=== PATIENT | female | born 1990 | race Caucasian/White ===

== ENCOUNTER → 2019-04-19 13:35 | Outpatient (CLI) | payer BC, MEDICAID, SELFPAY ==
[2019-04-24 08:21] LABS: HPV HC, High Risk Negative (Negative)
== END ==
PROVIDERS: Visit Provider Obstetrics & Gynecology
DX: R87.613 High grade squamous intraepithelial lesion on cytologic smear of cervix (HGSIL) (principal)
CPT/HCPCS: 87624; 88175; G0145

== ENCOUNTER → 2020-05-04 17:55 | Outpatient (CLI) | payer BC, MEDICAID, SELFPAY | PROVIDERS: Referring Provider Obstetrics & Gynecology; Visit Provider Obstetrics & Gynecology | DX: Z12.4 Encounter for screening for malignant neoplasm of cervix (principal); Z11.3 Encounter for screening for infections with a predominantly sexual mode of transmission ==

== ENCOUNTER → 2021-02-21 09:50 | Outpatient (CLI) | payer MEDICAID, SELFPAY ==
[2015-06-01 08:23] VITALS: BMI 30.2
[2021-02-21 13:26] LABS: Hematocrit 38.7 % (37-47); Hemoglobin 12.8 g/dL (12.0-15.0); Mean Corp Hgb Conc 33.1 g/dL (32-36); Mean Corpuscular Hgb 32.1 pg (27.0-32.0); Mean Platelet Vol. 9.8 fl (6.2-12.0); Platelet Count 392 K/mm3 (150-450); RBC Distribution Width CV 13.5 % (11.6-14.6); RBC Distribution Width SD 47.7 fl (35.1-43.9); Red Blood Count 3.99 M/mm3 (4.2-5.4); White Blood Count 8.6 K/mm3 (4.4-11.0)
[2021-02-21 14:18] LABS: Anion Gap 6 (5-15); BUN 13 mg/dL (7-18); BUN/Creat Ratio 14.1 RATIO (10-20); Calcium,Total 9.4 mg/dL (8.5-10.1); Chloride 109 mmol/L (98-107); Creatinine, Serum 0.92 mg/dL (0.55-1.02); EST Glomerular Filtration Rate 75 mL/min (>60); Est Glom Filt Rate - Afr Amer 91 mL/min (>60); Follicle Stimulating Hormone 1.2 mIU/mL; Glucose 68 mg/dL (74-106); Luteinizing Hormone 4.3 mIU/mL; Potassium 3.6 mmol/L (3.5-5.1); Prolactin 7.3 ng/mL; Sodium Level 140 mmol/L (136-145); T4 Free Direct 0.91 ng/dL (0.76-1.46); Thyroid Stim Hormone (TSH) 0.68 uIU/mL (0.358-3.74)
== END ==
PROVIDERS: Visit Provider Obstetrics & Gynecology
DX: O92.6 Galactorrhea (principal)
CPT/HCPCS: 36415; 80048; 83001; 83002; 84146; 84439; 84443; 85027

== ENCOUNTER → 2021-03-08 11:37 | Outpatient (CLI) | payer MEDICAID, SELFPAY ==
[2015-06-01 08:23] VITALS: BMI 30.2
[2021-03-08 13:22] LABS: HIV - WCH Non-Reactive (Nonreactive); Hepatitis B Surface Antigen Non-Reactive (Nonreactive); Hepatitis C Antibody Non-Reactive (Nonreactive); Syphilis Antibodies Non-reactive
[2021-03-11 07:06] LABS: Chlamydia By Nucleic Acid AMP Negative (Negative)
[2021-03-11 16:31] LABS: Gonococcus By Nucleic Acid AMP Negative (Negative)
== END ==
PROVIDERS: Visit Provider Obstetrics & Gynecology
DX: Z11.3 Encounter for screening for infections with a predominantly sexual mode of transmission (principal)
CPT/HCPCS: 36415; 86703; 86780; 86803; 87340; 87491; 87591

== ENCOUNTER 2021-06-01 15:03 | Emergency (ER) | payer MEDICAID, SELFPAY ==
[2021-06-01 15:04] VITALS: BP 136/77; PULSE 76; RESP 14; TEMP 36.6; O2SAT 98; BMI 28.2
--- NOTE | 2021-06-01 15:20 | CT_ITS ---
EXAM: CT ABDOMEN AND PELVIS WITHOUT INTRAVENOUS CONTRAST CLINICAL INDICATION: Kidney Stone TECHNIQUE: Helically acquired images were obtained of the abdomen and pelvis without intravenous contrast. This CT exam was performed using one or more of the following dose reduction techniques: automated exposure control, adjustment of the mA and/or kV according to patient size, and/or use of iterative reconstruction technique. This report was created using [employer] report generation technology. COMPARISON: None. FINDINGS: LOWER THORAX: Unremarkable. Lung bases are clear. No cardiomegaly. No significant pericardial effusion. ABDOMEN: LIVER: Unremarkable. Homogeneous. GALLBLADDER AND BILE DUCTS: Cholecystectomy. No intra- or extrahepatic biliary ductal dilation. PANCREAS: Unremarkable. No focal cystic mass. SPLEEN: Unremarkable. Normal size without focal cystic or solid mass. ADRENALS: Unremarkable. No nodules. KIDNEYS AND URETERS: 5 mm calculus at the left UVJ with mild hydronephrosis and hydroureter. Bilateral nephrolithiasis larger and more numerous on the left side, measuring up to 7.3 mm. Normal renal size and position. STOMACH AND BOWEL: Unremarkable. No stomach or bowel distention. No focal inflammatory change. PELVIS: APPENDIX: No evidence of acute appendicitis. BLADDER: Unremarkable. REPRODUCTIVE: Unremarkable as visualized. No mass. ABDOMEN and PELVIS: INTRAPERITONEAL SPACE: Unremarkable. No ascites or other fluid collection. No free air. BONES/JOINTS: Unremarkable. No suspicious lytic or blastic abnormality. SOFT TISSUES: Unremarkable. No discrete abdominal or pelvic wall hernia. VASCULATURE: Unremarkable. Abdominal aorta is non-dilated. LYMPH NODES: Unremarkable. No enlarged lymph nodes. CT/Abdomen/Pelvis without Cont IMPRESSION: 5 mm calculus at the left UVJ with mild hydronephrosis and hydroureter. Electronically Signed: Lg Valderrama MD (Bro[place]) at 15:59 EDT , Service support ,
--- NOTE | 2021-06-01 15:20 | ED.VIS.FEGU ---
HPI HPI - Female History of Present Illness Chief Complaint: Flank Pain Detail of Chief Complaint: Left flank pain for 3 to 4 days with a history of kidney stones. Informant: patient Pain Pain: Negative for Pelvic Pain Current Severity: Mild Maximum Severity: Moderate Bleeding Issue: Negative for Vaginal bleeding Associated Symptoms Associated Symptoms: Negative for Dysuria, Frequency, Urgency and Hematuria Test: Positive Narrative Narrative: 31-year-old female history of kidney stones. Prior lithotripsy in the past. 1 to 2 weeks ago was diagnosed with a UTI at an emergency department in [facility]. Took 3 of the 5 days of the Macrobid and then lost her prescription. Plan left flank pain that she thinks is a kidney stone is started on Thursday night. She has had nausea with it. No fever or chills. No dysuria. No trauma. States she is had a prior tubal ligation. Prior similar symptoms: Yes Recent Illness/Hospitalization: No PFSH PFSH Medical History Kidney stones Migraines Home Medications cholecalciferol (vitamin D3) 1,000 mcg PO DAILY 06/01/21 [History Last Taken Unknown] gemfibrozil 600 mg PO BID 06/01/21 [History Last Taken Unknown] hydrocodone-acetaminophen 1 tab PO Q4H PRN 5 Days #14 tab 06/01/21 [Rx Last Taken Unknown] hydrocodone-acetaminophen 1 tab PO Q4H PRN 5 Days #14 tab 06/01/21 [Rx Last Taken Unknown] omega-3 fatty acids-vitamin E [Fish Oil] 2 cap PO BID 06/01/21 [History Last Taken Unknown] topiramate [Topamax] 50 mg PO BID 06/01/21 [History Last Taken Unknown] Allergy/AdvReac Type Severity Reaction Status Date / Time cefaclor [From Ceclor] Allergy Hives Verified 06/01/21 15:04 diphenhydramine HCl Allergy Hives Verified 06/01/21 15:04 [From Benadryl] Penicillins Allergy Hives Verified 06/01/21 15:04 Sulfa (Sulfonamide Allergy Hives Verified 06/01/21 15:04 Antibiotics) Surgical History History of cholecystectomy Social History Smoking Status: Current every day smoker tobacco type: cigarettes ROS ROS ED ROS Narrative Denies recent illness other than nausea associated with her left flank pain. Review of Systems ROS Unobtainable: Denies due to encephalopathy Constitutional Constitutional ED: Denies chills or fever(s) Eyes Eyes: Denies change in vision ENT ENT ED: Denies ear pain or sore throat Cardiovascular Cardiovascular: Denies chest pain Respiratory/Chest Respiratory/Chest: Denies cough or dyspnea Gastrointestinal Gastrointestinal: Reports abdominal pain and nausea; Denies constipation, diarrhea or vomiting Genitourinary Genitourinary ED: Denies dysuria or hematuria Musculoskeletal Musculoskeletal: Denies myalgias Integumentary Denies rash Neurologic Neurologic: Denies headache(s) Psychiatric Psychiatric: Denies depression Endocrine Endocrinology: Denies polyuria Hematologic/Lymphatic Hematologic/Lymphatic: Denies easy bruising Allergic/Immunologic Allergic/Immunologic ED: Denies urticaria EXAM Physical Exam Narrative Exam Narrative: Well-appearing female no acute distress. Exam benign except mild left CVA tenderness. She does not look septic or toxic. Abdomen is completely benign and nontender. Otherwise exam normal. Const Vital Signs: 06/01/21 15:04 Temperature 97.8 F Temperature Source Temporal Pulse Rate 76 Respiratory Rate 14 Blood Pressure 136/77 H Blood Pressure Mean 96 Pulse Ox 98 Oxygen Delivery Method Room Air Positive well nourished and well developed General Appearance ED: well developed HEENT Reports moist mucous membranes Negative for trauma or tenderness Eyes PERRL and EOMs intact bilaterally Neck no lymphadenopathy, supple and no JVD Thyroid: Negative for tender Chest Wall inspection of chest normal and palpation of chest normal Resp normal respiratory effort and clear to auscultation bilaterally Cardio regular rate, regular rhythm, S1 normal heart sound, no murmurs and no JVD GI normal to inspection, nondistended, normoactive bowel sounds, soft to palpation, non-tender, non-distended and no masses Auscultation: normoactive bowel sounds; Negative for hypoactive bowel sounds Palpation: Negative for tender, guarding or rigid Back/Spine Back/Spine Narrative: Mild left flank tenderness. No ecchymosis or bruising. No redness or warmth. General Back: CVA tenderness Extremity normal to inspection and full ROM General Extremety ED: Negative for edema or tenderness General Extremity: Negative for edema Neuro oriented x3, CN's II-XII intact bilaterally and no sensory deficits noted Sensorium / Orientation: alert, oriented to person, oriented to place and oriented to time Motor Exam: strength 5/5 throughout Psych mental status grossly normal Skin no rashes or lesions noted and no wounds MDM MDM MDM Narrative Medical decision making narrative: 31-year-old female left flank pain with stone history concern for kidney stone versus UTI versus other. She has had a prior tubal ligation I do not feel she is clinically . Otherwise exam is benign. Treated with IV Toradol and Zofran for nausea. CAT scan labs pending. Lab Data Attestation: I reviewed the patient's lab results. Lab results narrative: Chemistries unremarkable normal gap and creatinine. negative. UA contaminated [place] 50 occult blood. 10-25 whites but 5 epithelial cells no bacteria no nitrates I do not think infection that needs to be treated. CAT scan showed a 5 mm left UVJ stone with hydro-. All these were discussed the patient. On repeat exam she is doing well at 4:08 PM is comfortable being discharged home. She will be giving a dose of IV morphine prior to discharge. Labs: Laboratory Results - last 24 hr 06/01/21 06/01/21 06/01/21 15:20 15:30 15:30 Sodium 140 Potassium 3.7 Chloride 112 H Carbon Dioxide 21.0 Anion Gap 7 BUN 15 Creatinine 0.94 Estim Creat Clear Calc 71.07 Est GFR (MDRD) Af Amer 88 Est GFR (MDRD) Non-Af 73 BUN/Creatinine Ratio 15.9 Glucose 110 H Calcium 8.9 Serum , Qual NEGATIVE Urine Color Yellow Urine Clarity Cloudy Urine pH 7.0 Ur Specific [place] 1.010 Urine Protein 15 H Urine Glucose (UA) Normal Urine Ketones Negative Urine Occult Blood 150 H Urine Nitrite Negative Urine Bilirubin Negative Urine Urobilinogen Normal Ur Leukocyte Esterase 500 H Urine RBC 0-5 SEEN Urine WBC 10-25 SEEN Ur Squamous Epith Cells 5-10 SEEN Amorphous Sediment 1+ Urine Bacteria 0 SEEN Urine Mucus 0 SEEN Radiography Diagnostic Testing: Radiology Impression Abdomen/Pelvis CT 06/01/21 15:20 IMPRESSION: 5 mm calculus at the left UVJ with mild hydronephrosis and hydroureter. Electronically Signed: Lg Valderrama MD (Bro[place]) at 15:59 EDT , Service support , Discharge Plan Triage Chief Complaint: Flank Pain ED Provider: Nolan Keating Dx/Rx/DC Orders Clinical Impression: Kidney stone on left side Instructions: ED Kidney Stone w/ Colic Prescriptions: New hydrocodone-acetaminophen 5-325 mg tablet 1 tab PO Q4H PRN (Reason: pain) 5 Days Qty: 14 RF: 0 hydrocodone-acetaminophen 5-325 mg tablet 1 tab PO Q4H PRN (Reason: pain) 5 Days Qty: 14 RF: 0 No Action gemfibrozil 600 mg Tablet 600 mg PO BID RF: 0 Fish Oil 1,000 mg Capsule 2 cap PO BID RF: 0 topiramate [Topamax] 50 mg Tablet 50 mg PO BID RF: 0 cholecalciferol (vitamin D3) 25 mcg (1,000 unit) tablet 1,000 mcg PO DAILY RF: 0 Primary Care Provider: Rashaun Echevarria Referrals: Rashaun Echevarria, [Primary Care Provider] - 3-5 Days if not improving Cuong Craig MD [STAFF PHYSICIAN] - 3-5 Days if not improving Activity Restrictions/Additional Instructions: Plenty of fluids and rest. [place] as needed for pain. Also a little Motrin or Advil or ibuprofen. Strain your urine for the past stone. You have a little 5 mm stone in the left just above your bladder that should pass. Return if feeling worse, intractable pain, intractable vomiting or fever. Otherwise follow-up with your doctor or local urologist Dr. Jay Craig. Disposition Disposition: Home, Self Care
[2021-06-01] MEDS: Ketorolac 30 MG/ML Syringe IV (15:27)
[2021-06-01] MEDS: Ondansetron 4 MG/2 ML Vial IV ×2 (15:27→16:18)
[2021-06-01 15:30] LABS: Bacteria 0 SEEN /hpf (None Seen); Mucous, Urine 0 SEEN /hpf (<or=2+)
[2021-06-01 15:32] LABS: Color, Urine Yellow (Yellow); Glucose, Dipstick Normal (Normal); Ketone-Dipstick Negative (Negative); Leukocyte Esterase-Dipstick 500 /ul (Negative); Nitrite-Dipstick Negative (Negative); Occult Blood-Urine 150 /ul (Negative); Protein-Dipstick 15 mg/dl (Negative); Urine Bilirubin Dipstick Negative (Negative); Urine Clarity Cloudy (Clear); Urine Urobilinogen Normal (Normal)
[2021-06-01 15:47] LABS: Amorphous Sediment 1+; Red Blood Cells-Urine 0-5 SEEN /hpf (0-5); Squamous Epithelial Cells - UA 5-10 SEEN /hpf (5-10); White Blood Cells 10-25 SEEN /hpf (0-5)
[2021-06-01 15:52] LABS: Internal QC Validated? YES +Cl - CLEAR BKGD; Pregnancy, Serum, hCG Quali. NEGATIVE Negative
[2021-06-01 15:55] LABS: Anion Gap 7 (5-15); BUN 15 mg/dL (7-18); BUN/Creat Ratio 15.9 RATIO (10-20); Calcium,Total 8.9 mg/dL (8.5-10.1); Chloride 112 mmol/L (98-107); Creatinine, Serum 0.94 mg/dL (0.55-1.02); EST Glomerular Filtration Rate 73 mL/min (>60); Est Glom Filt Rate - Afr Amer 88 mL/min (>60); Estimated Creatinine Clearance 71.07 ml/min; Glucose 110 mg/dL (74-106); Potassium 3.7 mmol/L (3.5-5.1); Sodium Level 140 mmol/L (136-145)
[2021-06-01] MEDS: morphine 8 MG/ML Syringe IV (16:18)
--- NOTE | 2021-06-01 16:27 | ED.RN ---
Irma Thomason in [place] called and aware we are cancelling the hydrocodone. Her pharmacy closes at 5pm and she wont make it there in time so will see about getting filled via retail pharm and sending up here.
--- NOTE | 2021-06-01 16:34 | ED.RN ---
ptient willing to wait for shift change at 5pm whe new staff gets here to be able to fill and they are aware of code in the er
--- NOTE | 2021-06-01 17:24 | ED.RN ---
Pharmacy called and tech states she had problems with the pts insurance and is finishing up and will bring meds up in a few minutes. Pt informed of this and this RN apologized for the wait.
[2021-06-01 17:26] VITALS: BP 101/57; PULSE 55; RESP 15
== END 2021-06-01 17:29 | disposition home or self-care (01) ==
PROVIDERS: Emergency Provider Emergency Medicine; PCP Family Medicine
DX: N20.0 Calculus of kidney (principal); F17.210 Nicotine dependence, cigarettes, uncomplicated; Z87.442 Personal history of urinary calculi; Z79.899 Other long term (current) drug therapy
CPT/HCPCS: 74176; 80048; 81001; 84703; 96374; 96375; 96376; 99283; A4216; J2405

== ENCOUNTER 2021-12-27 15:47 | Emergency (ER) | payer MEDICAID, SELFPAY ==
[2021-12-27 15:47] VITALS: BP 141/89; PULSE 77; RESP 16; TEMP 36.4; O2SAT 99; BMI 28.1
--- NOTE | 2021-12-27 15:58 | CT_ITS ---
STUDY: CT ABDOMEN AND PELVIS WITHOUT CONTRAST REASON FOR EXAM: Female, 31 years old. Flank pain RADIATION DOSAGE (If Supplied By Facility): CTDIvol = ( 8.24 ) mGy, DLP = ( 407.43 ) mGycm TECHNIQUE: Transaxial images were obtained from the dome of the diaphragm to the symphysis pubis without oral contrast, and without intravenous contrast. Sagittal and coronal images were reconstructed. Individualized dose optimization techniques were used for this CT. COMPARISON: 06/01/2021 FINDINGS: The visualized lung bases are unremarkable. The visualized portions of the heart are within normal limits. Normal liver. There are surgical clips in the gallbladder fossa consistent with a prior cholecystectomy. Normal spleen. Normal pancreas. Normal bilateral adrenal glands. No obstructive uropathy, stable bilateral calcifications in the cortical medullary junctions of both kidneys. No suspicious solid lesion, there are stable simple cysts in the left kidney. Normal visualized stomach. Normal small intestine. Normal colon. The appendix is visualized and appears normal. Appendix seen on coronal recon images 63-68 Normal abdominal aorta. Normal inferior vena cava. Normal retroperitoneum. Normal urinary bladder. Normal visualized uterus. No suspicious cystic mass or free fluid Normal abdominal wall. Normal osseous structures. CT/Abdomen/Pelvis without Cont IMPRESSION: No obstructive uropathy or suspicious solid renal lesion. Bilateral nonobstructing renal calculi. Simple left renal cysts, no specific follow-up needed. Normal appendix visualized No free intraperitoneal fluid, air, or suspicious adenopathy Electronically Signed: Royer Ureña MD at 17:25 EST ,
--- NOTE | 2021-12-27 16:06 | EDS_ITS ---
HPI HPI - Female History of Present Illness Chief Complaint: Flank Pain Narrative Narrative: 31-year-old female with history of kidney stones presenting with left flank pain with acute onset this morning. Patient states she has nausea as well. Patient states that her last kidney stone in May past spontaneously and this was over 5 mm. Patient states he sees Dr. Rojas at [facility]. She has had kidney stones in the past that have not passed and required instrumentation. Patient denies any urinary complaints. She has no constipation or diarrhea. PFSH [facility] Medical History Kidney stones Migraines Home Medications cholecalciferol (vitamin D3) 1,000 mcg PO DAILY 06/01/21 [History Last Taken Unknown] gemfibrozil 600 mg PO BID 06/01/21 [History Last Taken Unknown] hydrocodone-acetaminophen 1 tab PO Q4H PRN 5 Days #14 tab 06/01/21 [Rx Last Taken Unknown] hydrocodone-acetaminophen 1 tab PO Q4H PRN 5 Days #14 tab 06/01/21 [Rx Last Taken Unknown] omega-3 fatty acids-vitamin E [Fish Oil] 2 cap PO BID 06/01/21 [History Last Taken Unknown] topiramate [Topamax] 50 mg PO BID 06/01/21 [History Last Taken Unknown] hydrocodone-acetaminophen 1 tab PO Q6H PRN 3 Days #8 tab 12/27/21 [Rx Last Taken Unknown] ondansetron 4 mg PO Q8H PRN #10 tab 12/27/21 [Rx Last Taken Unknown] Allergy/AdvReac Type Severity Reaction Status Date / Time cefaclor [From Ceclor] Allergy Hives Verified 12/27/21 15:48 diphenhydramine HCl Allergy Hives Verified 12/27/21 15:48 [From Benadryl] Penicillins Allergy Hives Verified 12/27/21 15:48 Sulfa (Sulfonamide Allergy Hives Verified 12/27/21 15:48 Antibiotics) Surgical History History of cholecystectomy Social History Smoking Status: Current every day smoker tobacco type: cigarettes ROS ROS ED Constitutional Constitutional ED: Reports sweats; Denies chills or fever(s) Eyes Eyes: Denies blurry vision or change in vision ENT ENT ED: Denies rhinorrhea or sore throat Cardiovascular Cardiovascular: Denies chest pain or palpitations Respiratory/Chest Respiratory/Chest: Denies cough or dyspnea Gastrointestinal Gastrointestinal: Reports abdominal pain and nausea; Denies constipation or diarrhea Genitourinary Genitourinary ED: Denies dysuria Musculoskeletal Musculoskeletal: Reports other Details: Left flank pain Integumentary Denies Abrasions or rash Neurologic Neurologic: Denies headache(s) or paresthesias EXAM Physical Exam Const Vital Signs: 12/27/21 15:47 12/27/21 18:18 Temperature 97.6 F L Temperature Source Temporal Pulse Rate 77 71 Respiratory Rate 16 16 Blood Pressure 141/89 H 137/68 H Blood Pressure Mean 106 91 Pulse Ox 99 98 Oxygen Delivery Method Room Air Room Air Positive well nourished General Appearance ED: NAD; Negative for pallor HEENT Reports moist mucous membranes Negative for trauma Eyes PERRL and EOMs intact bilaterally Resp normal respiratory effort and clear to auscultation bilaterally GI Palpation: tender RLQ Neuro oriented x3 Sensorium / Orientation: alert Psych mental status grossly normal Skin General Skin Exam: Negative for jaundice or pallor MDM MDM MDM Narrative Medical decision making narrative: Patient with history of kidney stones and left flank pain which is acute in onset this morning. Patient given morphine, Toradol, Zofran. She is given 500 cc of IV fluids. Will obtain lab work, urinalysis, CT abdomen pelvis without contrast. CBC is normal limits. Renal function is normal as well as electrolytes. Urinalysis negative infection but does have occult blood. CT of the abdomen pelvis is negative for kidney stone however given the hematuria have a high suspicion that she likely passed a kidney stone. She was given morphine, Zofran, Toradol in ED and is currently doing well. She request pain medication and nausea medication for home. I did give her a short supply of this. Patient will follow up with her urologist outpatient. Impression: 1. Left flank pain 2. Hematuria 3. Likely passed kidney stone Lab Data Labs: Laboratory Results - last 24 hr 12/27/21 12/27/21 12/27/21 15:55 16:10 16:10 WBC 10.3 RBC 4.02 L Hgb 12.5 Hct 38.2 MCV 95.0 MCH 31.1 MCHC 32.7 RDW Std Deviation 45.7 H RDW Coeff of Ting 13.1 Plt Count 404 MPV 9.2 Immature Gran % (Auto) 0.400 Neut % (Auto) 57.4 Lymph % (Auto) 31.3 [place] % (Auto) 7.8 Eos % (Auto) 2.5 Baso % (Auto) 0.6 Absolute Neuts (auto) 5.9 Absolute Lymphs (auto) 3.21 Nucleated RBC % 0 Sodium 141 Potassium 3.7 Chloride 113 H Carbon Dioxide 24.0 Anion Gap 4 L BUN 12 Creatinine 0.88 Estim Creat Clear Calc 75.92 Est GFR (MDRD) Af Amer 95 Est GFR (MDRD) Non-Af 78 BUN/Creatinine Ratio 13.6 Glucose 112 H Calcium 8.7 Urine Color Yellow Urine Clarity Cloudy Urine pH 8.0 Ur Specific [place] 1.010 Urine Protein Negative Urine Glucose (UA) Normal Urine Ketones Negative Urine Occult Blood 250 H Urine Nitrite Negative Urine Bilirubin Negative Urine Urobilinogen Normal Ur Leukocyte Esterase 25 H Urine RBC 25-50 SEEN Urine WBC 0 SEEN Ur Squamous Epith Cells 5-10 SEEN Amorphous Sediment 2+ Urine Bacteria 1+ Urine Mucus 0 SEEN Urine Test Negative Radiography Diagnostic Testing: Clinical Impression(s) from Imaging Studies Abdomen/Pelvis CT 12/27/21 15:58 IMPRESSION: No obstructive uropathy or suspicious solid renal lesion. Bilateral nonobstructing renal calculi. Simple left renal cysts, no specific follow-up needed. Normal appendix visualized No free intraperitoneal fluid, air, or suspicious adenopathy Electronically Signed: Royer Ureña MD at 17:25 EST Reading Location ID and State: [facility] / [place] , Service support , Discharge Plan Triage Chief Complaint: Flank Pain ED Provider: Michael Brandon Dx/Rx/DC Orders Instructions: ED Kidney Stone, Passed Prescriptions: New hydrocodone-acetaminophen 5-325 mg tablet 1 tab PO Q6H PRN (Reason: pain) 3 Days Qty: 8 RF: 0 ondansetron 4 mg tablet,disintegrating 4 mg PO Q8H PRN (Reason: nausea and vomiting) Qty: 10 RF: 0 No Action gemfibrozil 600 mg Tablet 600 mg PO BID RF: 0 Fish Oil 1,000 mg Capsule 2 cap PO BID RF: 0 topiramate [Topamax] 50 mg Tablet 50 mg PO BID RF: 0 cholecalciferol (vitamin D3) 25 mcg (1,000 unit) tablet 1,000 mcg PO DAILY RF: 0 hydrocodone-acetaminophen 5-325 mg tablet 1 tab PO Q4H PRN (Reason: pain) 5 Days Qty: 14 RF: 0 hydrocodone-acetaminophen 5-325 mg tablet 1 tab PO Q4H PRN (Reason: pain) 5 Days Qty: 14 RF: 0 Primary Care Provider: Rashaun Echevarria Referrals: Rashaun Echevarria DO [Primary Care Provider] - Disposition Disposition: Home, Self Care Discharge Date/Time: 12/27/21 18:20
[2021-12-27 16:07] LABS: Mucous, Urine 0 SEEN /hpf (<or=2+); White Blood Cells 0 SEEN /hpf (0-5)
[2021-12-27] MEDS: Morphine 4 MG/ML Syringe IV (16:09)
[2021-12-27] MEDS: Ondansetron 4 MG/2 ML Vial IV (16:09)
[2021-12-27] MEDS: Ketorolac 15 MG/ML Vial IV (16:09)
[2021-12-27 16:20] LABS: Absolute Lymphocyte Count 3.21 X10^3/uL (0.83-4.51); Absolute Neutrophil Count 5.9 X10^3/uL (2.0-7.7); Basophil# 0.06 X10^3/uL; Basophil% 0.6 % (0-1); Eosinophil# 0.26 X10^3/uL; Eosinophils% 2.5 % (0-5); Hematocrit 38.2 % (37-47); Hemoglobin 12.5 g/dL (12.0-15.0); Lymphocyte # 3.21 X10^3/ul (0.83-4.51); Lymphocyte % 31.3 % (19-41); Mean Corp Hgb Conc 32.7 g/dL (32-36); Mean Corpuscular Hgb 31.1 pg (27.0-32.0); Mean Platelet Vol. 9.2 fl (6.2-12.0); Monocyte% 7.8 % (0-10); NRBC Flagged by Analyzer 0 % (0-5); Neutrophil # 5.89 X10^3/uL (2.7-7.7); Neutrophil % 57.4 % (47-70); Platelet Count 404 K/mm3 (150-450); RBC Distribution Width CV 13.1 % (11.6-14.6); RBC Distribution Width SD 45.7 fl (35.1-43.9); Red Blood Count 4.02 M/mm3 (4.2-5.4); White Blood Count 10.3 K/mm3 (4.4-11.0)
[2021-12-27 16:36] LABS: Color, Urine Yellow (Yellow); Glucose, Dipstick Normal (Normal); Ketone-Dipstick Negative (Negative); Leukocyte Esterase-Dipstick 25 /ul (Negative); Nitrite-Dipstick Negative (Negative); Occult Blood-Urine 250 /ul (Negative); Protein-Dipstick Negative (Negative); Urine Bilirubin Dipstick Negative (Negative); Urine Clarity Cloudy (Clear); Urine Urobilinogen Normal (Normal)
[2021-12-27 16:41] LABS: Anion Gap 4 (5-15); BUN 12 mg/dL (7-18); BUN/Creat Ratio 13.6 RATIO (10-20); Calcium,Total 8.7 mg/dL (8.5-10.1); Chloride 113 mmol/L (98-107); Creatinine, Serum 0.88 mg/dL (0.55-1.02); EST Glomerular Filtration Rate 78 mL/min (>60); Est Glom Filt Rate - Afr Amer 95 mL/min (>60); Estimated Creatinine Clearance 75.92 ml/min; Glucose 112 mg/dL (74-106); Potassium 3.7 mmol/L (3.5-5.1); Sodium Level 141 mmol/L (136-145)
[2021-12-27 16:59] LABS: Red Blood Cells-Urine 25-50 SEEN /hpf (0-5)
[2021-12-27 17:00] LABS: Amorphous Sediment 2+; Bacteria 1+ /hpf (None Seen); Internal QC Validated? YES +Cl - CLEAR BKGD; Pregnancy, Urine Negative Negative; Squamous Epithelial Cells - UA 5-10 SEEN /hpf (5-10)
[2021-12-27 18:18] VITALS: BP 137/68; PULSE 71; RESP 16; O2SAT 97; O2SAT 98
== END 2021-12-27 18:20 | disposition home or self-care (01) ==
PROVIDERS: Emergency Provider Student in an Organized Health Care Education/Training Program; PCP Family Medicine; Visit Provider Student in an Organized Health Care Education/Training Program
DX: R10.9 Unspecified abdominal pain (principal); R31.9 Hematuria, unspecified; F17.210 Nicotine dependence, cigarettes, uncomplicated; Z87.442 Personal history of urinary calculi
CPT/HCPCS: 74176; 80048; 81001; 81025; 85025; 96374; 96375; 99284; J7030; J2405

== ENCOUNTER 2022-03-13 10:29 | Outpatient (CLI) | payer MEDICAID, SELFPAY ==
[2022-03-13 11:54] LABS: hCG Titer Quant., Serum < 1 mIU/mL (1-3)
[2022-03-20 16:11] LABS: HPV APTIMA, High Risk Negative (Negative)
== END 2022-03-13 23:59 | disposition home or self-care (01) ==
PROVIDERS: PCP Family Medicine; Referring Provider Obstetrics & Gynecology; Visit Provider Obstetrics & Gynecology
DX: Z12.4 Encounter for screening for malignant neoplasm of cervix (principal); N93.9 Abnormal uterine and vaginal bleeding, unspecified
CPT/HCPCS: 36415; 84702; 87624; 88175; G0145

== ENCOUNTER → 2022-07-17 | Outpatient (CLI) | payer MEDICAID, SELFPAY | END | disposition home or self-care (01) | PROVIDERS: PCP Family Medicine; Visit Provider Obstetrics & Gynecology | DX: A59.9 Trichomoniasis, unspecified (principal) ==

== ENCOUNTER → 2023-05-15 | Outpatient (CLI) | payer MEDICAID, SELFPAY ==
[2023-05-15 12:22] LABS: Absolute Lymphocyte Count 2.88 X10^3/uL (0.83-4.51); Absolute Neutrophil Count 4.9 X10^3/uL (2.0-7.7); Basophil# 0.08 X10^3/uL; Basophil% 0.9 % (0-1); Eosinophil# 0.36 X10^3/uL; Eosinophils% 4.1 % (0-5); Hematocrit 40.7 % (37-47); Hemoglobin 13.2 g/dL (12.0-15.0); Lymphocyte # 2.88 X10^3/ul (0.83-4.51); Lymphocyte % 32.5 % (19-41); Mean Corp Hgb Conc 32.4 g/dL (32-36); Mean Corpuscular Hgb 30.7 pg (27.0-32.0); Mean Corpuscular Volume 94.7 fL (81-99); Monocyte# 0.56 X10^3/uL; Monocyte% 6.3 % (0-10); NRBC Flagged by Analyzer 0 % (0-5); Neutrophil # 4.85 X10^3/uL (2.7-7.7); Neutrophil % 54.7 % (47-70); Platelet Count 366 K/mm3 (150-450); RBC Distribution Width CV 14.1 % (11.6-14.6); RBC Distribution Width SD 49.2 fl (35.1-43.9); White Blood Count 8.9 K/mm3 (4.4-11.0)
[2023-05-15 12:36] LABS: Progesterone Level 0.43 ng/mL (See Comment); hCG Titer Quant., Serum < 1 mIU/mL (1-3)
[2023-05-15 12:44] LABS: Estradiol 79.1 pg/mL; Follicle Stimulating Hormone 4.1 mIU/mL; Luteinizing Hormone 10.2 mIU/mL; T4 Free Direct 0.87 ng/dL (0.76-1.46); Thyroid Stim Hormone (TSH) 0.88 uIU/mL (0.358-3.74)
== END | disposition home or self-care (01) ==
LOC: WOBLAB 11:16
PROVIDERS: PCP Family Medicine; Visit Provider Nurse Practitioner Women's Health
DX: N93.9 Abnormal uterine and vaginal bleeding, unspecified (principal)
CPT/HCPCS: 36415; 82670; 83001; 83002; 84144; 84146; 84439; 84443; 84702; 85025